=== PATIENT | male | born 1995 | race Caucasian/White ===

== ENCOUNTER 2016-11-17 12:51 | Emergency (ER) | payer SELFPAY ==
[2016-11-17 13:08] VITALS: BP 120/70
[2016-11-17] MEDS ORDERED: Ibuprofen 800 MG Tab PO ONE (13:22)
--- NOTE | 2016-11-17 13:25 | EDM.PDOC ---
ED HPI GENERAL MEDICAL PROBLEM - General Chief Complaint: Lower Extremity Injury/Pain Stated Complaint: LEFT ANKLE PAIN Time Seen by Provider: 11/17/16 13:17 Source of Information: Reports: Patient, RN Notes Reviewed History Limitations: Reports: No Limitations - History of Present Illness INITIAL COMMENTS - FREE TEXT/NARRATIVE: 21-year-old gentleman presents emergency department day complaint of left ankle pain he denies any trauma states the pain has progressively gotten worse over the last 24 hours, he does feel like there is some bruising on the top aspect of ankle Left Feet Pain Score (Numeric/FACES): 6 - Related Data Allergies Allergy/AdvReac Type Severity Reaction Status Date / Time No Known Allergies Allergy Verified 11/17/16 13:09 Home Meds: Home Meds NK [No Known Home Meds] 11/17/16 [History] Past Medical History - Past Health History Medical/Surgical History: Denies Medical/Surgical History Social & Family History - Tobacco Use Smoking Status *Q: Current Every Day Smoker Years of Tobacco use: 5 Packs/Tins Daily: 0.3 Used Tobacco, but Quit: No Second Hand Smoke Exposure: No - Caffeine Use Caffeine Use: Reports: Coffee - Alcohol Use Days Per Week of Alcohol Use: 1 Number of Drinks Per Day: 4 Total Drinks Per Week: 4 - Recreational Drug Use Recreational Drug Use: No Drug Use in Last 12 Months: No Recreational Drug Type: Reports: Marijuana/Hashish Recreational Drug Use Frequency: Rarely Review of Systems - Review of Systems Review Of Systems: See Below Constitutional: Reports: No Symptoms Musculoskeletal: Reports: Foot Pain (Left), Joint Pain (Ankle) Trauma Exam - Physical Exam Exam: See Below Text/Narrative:: Examination of the left extremity on appreciate any erythema there is no edema I cannot elicit any specific point tenderness pedal pulses 2+ full range of motion of ankle tilt test and drawer test are both negative ambulates without difficulty Exam Limited By: No Limitations General Appearance: Reports: Alert, WD/WN, No Apparent Distress Course - Vital Signs Last Recorded V/S: Last Vital Signs Temp 96.9 F 11/17/16 13:06 Pulse 62 11/17/16 13:06 Resp 16 11/17/16 13:06 BP 120/70 11/17/16 13:06 Pulse Ox 97 11/17/16 13:06 - Orders/Labs/Meds Meds: Medications Discontinued Medications Generic Name Dose Route Start Last Admin Trade Name Dorian PRN Reason Stop Dose Admin Ibuprofen 800 mg 11/17/16 13:22 11/17/16 14:14 Motrin PO 11/17/16 13:23 800 mg ONETIME ONE Administration Departure - Departure Time of Disposition: 14:53 Disposition: Home, Self-Care 01 Condition: good Clinical Impression: Left ankle strain Qualifiers: Encounter type: initial encounter Qualified Code(s): S96.912A - Strain of unspecified muscle and tendon at ankle and foot level, left foot, initial encounter - Discharge Information Forms: ED Department Discharge Additional Instructions: Use nonsteroidal anti-inflammatories such as ibuprofen for pain relief, Please followup with your primary care provider in 3-5 days if not better, please call return to the emergency department with worsening of symptoms. - Assessment/Plan Plan: Assessment Acuity = acute Site and laterality = left ankle strain Etiology = unclear etiology Manifestations = none Location of injury = home Lab values = x-ray shows no acute process Plan He had good improvement with Motrin provided recommend continue anti- inflammatories follow up primary care 3-5 days if not better Patient was in agreement with the plan all questions were answered, they were instructed to return to the emergency department or call for worsening symptoms. This note was dictated using [employer] voice recognition software please call with any questions.
--- NOTE | 2016-11-17 13:54 | CR ---
Ankle Min 3V Lt HISTORY: pain FINDINGS: No acute fracture or dislocation is identified. Bony architecture and ankle mortise are preserved. Soft tissues are unremarkable. IMPRESSION: No fracture or other acute left ankle abnormality identified. No significant interval change compare d with 07/12/2013.
== END 2016-11-17 15:00 | disposition home or self-care (01) ==
LOC: JP.ED 12:51
DX: S96.912A Strain of unspecified muscle and tendon at ankle and foot level, left foot, initial encounter (principal); F17.210 Nicotine dependence, cigarettes, uncomplicated; X58.XXXA Exposure to other specified factors, initial encounter
CPT/HCPCS: 73610; 99283; 99284; A9270

== ENCOUNTER 2016-11-30 20:02 | Emergency (ER) | payer SELFPAY ==
[2016-11-30 21:18] VITALS: BP 143/78
[2016-11-30] MEDS ORDERED: Acetaminophen/oxyCODONE 325-5 MG Tab PO ONE (23:00)
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
== END 2016-11-30 23:49 | disposition home or self-care (01) ==
LOC: JP.ED 20:02
DX: S02.602A Fracture of unspecified part of body of left mandible, initial encounter for closed fracture (principal); S02.652A Fracture of angle of left mandible, initial encounter for closed fracture; Y04.2XXA Assault by strike against or bumped into by another person, initial encounter
CPT/HCPCS: 70486; 99284; A9270

== ENCOUNTER 2017-05-15 10:31 | Emergency (ER) | payer OTHER ==
[2017-05-15] MEDS ORDERED: HYDROmorphone 1 MG/ML Syringe IV ONE (10:45)
[2017-05-15] MEDS ORDERED: Sodium Chloride 0.9% 10 ML Syringe FLUSH PRN (10:50)
[2017-05-15] MEDS ORDERED: Ondansetron 4 MG/2 ML SDV IVPUSH ONE (10:50)
[2017-05-15] MEDS ORDERED: HYDROmorphone 1 MG/ML Syringe ONE (10:54)
[2017-05-15] MEDS ORDERED: Lactated Ringers 1,000 ML IV SCH (11:00)
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
--- NOTE | 2017-05-16 09:08 | CR ---
Tibia Fibula Rt INDICATION: trauma FINDINGS: Acute, mildly comminuted, mildly displaced fractures through the mid/distal diaphyses of th e right tibia and fibula. There is mild medial and anterior apex attenuation.
== END 2017-05-15 12:48 ==
LOC: JP.ED 10:31
DX: S82.201A Unspecified fracture of shaft of right tibia, initial encounter for closed fracture (principal); S82.401A Unspecified fracture of shaft of right fibula, initial encounter for closed fracture; F17.210 Nicotine dependence, cigarettes, uncomplicated; S40.012A Contusion of left shoulder, initial encounter; V53.5XXA Driver of pick-up truck or van injured in collision with car, pick-up truck or van in traffic accident, initial encounter
CPT/HCPCS: 36415; 73590; 80053; 85025; 96361; 96374; 96375; 99284; J1170; J2405; J7120; 99285

== ENCOUNTER 2017-05-22 10:03 | Emergency (ER) | payer OTHER ==
[2017-05-22 10:44] VITALS: BP 146/78
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
[2017-05-22] MEDS ORDERED: Ibuprofen 600 MG Tab PO ONE (13:19)
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
== END 2017-05-22 13:24 | disposition home or self-care (01) ==
LOC: JP.ED 10:03
DX: S20.211A Contusion of right front wall of thorax, initial encounter (principal); F17.210 Nicotine dependence, cigarettes, uncomplicated; X58.XXXA Exposure to other specified factors, initial encounter
CPT/HCPCS: 71020; 99285; A9270; 99283

== ENCOUNTER 2019-01-05 09:22 | Emergency (ER) | payer MEDICAID, OTHER ==
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
[2019-01-05 11:35] VITALS: BP 130/87; PULSE 80
== END 2019-01-05 11:46 | disposition home or self-care (01) ==
LOC: JP.ED 09:22
DX: R51 Headache (principal); R11.2 Nausea with vomiting, unspecified; F17.210 Nicotine dependence, cigarettes, uncomplicated
CPT/HCPCS: 36415; 85018; 99282; 99283

== ENCOUNTER 2019-06-11 16:12 | Emergency (ER) | payer SELFPAY ==
[2019-06-11 16:28] VITALS: BP 123/62; PULSE 69
[2019-06-11] MEDS ORDERED: Bacitracin Oint 1 GM U/D Packet TOP ONE (16:30)
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
== END 2019-06-11 17:13 | disposition home or self-care (01) ==
LOC: JP.ED 16:12
DX: S61.216A Laceration without foreign body of right little finger without damage to nail, initial encounter (principal); F41.9 Anxiety disorder, unspecified; W23.0XXA Caught, crushed, jammed, or pinched between moving objects, initial encounter
CPT/HCPCS: 12002; 99283; J2001

== ENCOUNTER 2019-07-08 11:56 | Emergency (ER) | payer SELFPAY ==
[2019-07-08] MEDS ORDERED: LORazepam 1 MG Tab PO ONE (12:25)
--- NOTE | 2019-07-08 13:17 | CRLCR ---
INDICATION: contusion to right hand- patient hand injury from fall TECHNIQUE: Hand radiograph 3 views right COMPARISON: None FINDINGS: Bone: No acute fractures or aggressive bone lesions are identified. Joint: The carpal and metacarpal-phalangeal joints are unremarkable in appearance. The interphalangeal joints are normal in appearance. Soft tissue: Unremarkable. No radiopaque foreign bodies are seen. IMPRESSION: 1. No acute osseous injuries or abnormalities are noted. Dictated by: Jose Ledezma MD @ 07/08/2019 13:15:18 (Electronically Signed)
[2019-07-08 13:44] VITALS: BP 114/62; PULSE 88
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
== END 2019-07-08 14:05 | disposition home or self-care (01) ==
LOC: JP.ED 11:56
DX: S60.221A Contusion of right hand, initial encounter (principal); F41.9 Anxiety disorder, unspecified; F32.9 Major depressive disorder, single episode, unspecified; W00.0XXA Fall on same level due to ice and snow, initial encounter
CPT/HCPCS: 73130; 99284; A9270